=== PATIENT | female | born 1935 | race American Indian/Alaskan Native ===

== ENCOUNTER 2020-06-27 21:39 | Emergency (ER) | payer MEDICARE ==
--- NOTE | 2020-06-27 22:05 | Emergency Department Report ---
ED Lower Extremity HPI - General Chief Complaint: Extremity Injury, Lower Stated Complaint: LEFT ANKLE INJURY Time Seen by Provider: 06/27/20 21:56 Source: patient, EMS Mode of arrival: Stretcher Limitations: Physical Limitation - History of Present Illness Initial Comments: 85-year-old female presents to ED with left ankle injury. 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 Patient gets around in a motorized wheelchair. Tonight, left foot became caught underneath the footplate of the wheelchair. Patient reports some pain and swelling to the left ankle. Patient declines pain medication at this time. MD Complaint: ankle injury -: This evening Injury: Ankle: Left Place: home Severity: moderate Improves With: immobilization Worsens With: movement, palpation Context: other Associated Symptoms: swelling - Related Data Home Medications Medication Instructions Recorded Confirmed Last Taken Digoxin 0.125 mg PO DAILY 06/03/15 06/07/15 06/07/15 Glyburide 4 mg PO BID 06/03/15 06/07/15 06/07/15 HCTZ 6.25 mg PO DAILY 06/03/15 06/07/15 06/07/15 Lasix TAB 20 mg PO BID 06/03/15 06/07/15 06/06/15 Lisinopril 5 mg PO DAILY 06/03/15 06/07/15 06/07/15 Lyrica 100 mg PO BID 06/03/15 06/07/15 06/07/15 Metformin HCl 850 mg PO BID 06/03/15 06/07/15 06/07/15 Simvastatin 20 mg PO DAILY 06/03/15 06/07/15 06/06/15 Allergies Allergy/AdvReac Type Severity Reaction Status Date / Time No Known Allergies Allergy Verified 06/03/15 15:34 ED Review of Systems ROS: Stated complaint: LEFT ANKLE INJURY Other details as noted in HPI Comment: All other systems reviewed and negative Musculoskeletal: as per HPI ED Past Medical Hx - Past Medical History Previous Medical History?: Yes Hx Hypertension: Yes (increased cholesterol) Hx CVA: Yes (left sided weakness) Hx Diabetes: Yes Hx GERD: Yes Hx Asthma: No Hx COPD: No Hx HIV: No Additional medical history: irreg heart beat - Surgical History Past Surgical History?: Yes Hx Pacemaker: Yes (SICK SINUS SYNDROME) Additional Surgical History: hyster. tonsil. angioplasty - Social History Smoking Status: Never Smoker Substance Use Type: None - Medications Home Medications: Home Medications Medication Instructions Recorded Confirmed Last Taken Type Digoxin 0.125 mg PO DAILY 06/03/15 06/07/15 06/07/15 History Glyburide 4 mg PO BID 06/03/15 06/07/15 06/07/15 History HCTZ 6.25 mg PO DAILY 06/03/15 06/07/15 06/07/15 History Lasix TAB 20 mg PO BID 06/03/15 06/07/15 06/06/15 History Lisinopril 5 mg PO DAILY 06/03/15 06/07/15 06/07/15 History Lyrica 100 mg PO BID 06/03/15 06/07/15 06/07/15 History Metformin HCl 850 mg PO BID 06/03/15 06/07/15 06/07/15 History Simvastatin 20 mg PO DAILY 06/03/15 06/07/15 06/06/15 History ED Physical Exam - General Limitations: Physical Limitation General appearance: alert, in no apparent distress - Head Head exam: Present: atraumatic - Eye Eye exam: Present: normal appearance, EOMI - ENT ENT exam: Present: mucous membranes moist - Neck Neck exam: Present: normal inspection - Respiratory Respiratory exam: Present: normal lung sounds bilaterally. Absent: respiratory distress - Cardiovascular Cardiovascular Exam: Present: regular rate, normal rhythm - GI/Abdominal GI/Abdominal exam: Absent: distended - Extremities Exam Extremities exam: Present: other (Tenderness, mild swelling to the left ankle; baseline weakness in left lower extremity secondary to CVA) - Neurological Exam Neurological exam: Present: alert, oriented X3 - Psychiatric Psychiatric exam: Present: normal affect, normal mood - Skin Skin exam: Present: warm, dry, intact, normal color ED Course Vital Signs 06/27/20 06/27/20 21:54 23:27 Temperature 98.4 F Pulse Rate 63 59 L Respiratory 16 16 Rate Blood Pressure 152/39 Blood Pressure 151/46 [Right] O2 Sat by Pulse 99 98 Oximetry ED Lower Extremity MDM - Radiology Data Radiology results: report reviewed, image reviewed - Medical Decision Making 85-year-old female with left ankle sprain. X-rays negative for any fracture or dislocation. August wrap applied. She will be discharged at this time. Outpatient follow-up advised. Return precautions given. - Differential Diagnosis Fracture, sprain Critical care attestation.: If time is entered above; I have spent that time in minutes in the direct care of this critically ill patient, excluding procedure time. ED Disposition Clinical Impression: Sprain of left ankle Disposition: TO HOME OR SELFCARE Is pt being admited?: No Does the pt Need Aspirin: No Condition: Stable Instructions: Ankle Sprain (ED) Referrals: RAE MELGOZA MD [Staff Physician] - as needed Time of Disposition: 23:01
--- NOTE | 2020-06-27 22:36 | XRay Report ---
LEFT ANKLE 3 VIEWS INDICATION / CLINICAL INFORMATION: INJURY, PAIN. COMPARISON: None available. FINDINGS: Moderate vascular calcification. No fracture or other acute skeletal abnormality. Signer Name: Hossein Boone MD Signed: 06/27/2020 10:32 PM Workstation Name: [id number]
[2020-06-27 23:28] VITALS: BP 151/46
[2020-06-27] MEDS ORDERED: ACETAMINOPHEN 325 MG TAB PO ONE (23:29)
== END 2020-06-28 00:50 | disposition home or self-care (01) ==
LOC: ED 21:39
DX: S93.492A Sprain of other ligament of left ankle, initial encounter (principal); X58.XXXA Exposure to other specified factors, initial encounter; Y93.89 Activity, other specified; Y92.89 Other specified places as the place of occurrence of the external cause; Y99.8 Other external cause status